=== PATIENT | male | born 1975 | race Caucasian/White ===

== ENCOUNTER 2022-10-20 07:47 | Emergency (ER) | payer BC | END 2022-10-20 10:08 | disposition home or self-care (01) | LOC: LB.ED 07:47 | DX: T58.91XA Toxic effect of carbon monoxide from unspecified source, accidental (unintentional), initial encounter (principal); J45.909 Unspecified asthma, uncomplicated; Z88.5 Allergy status to narcotic agent; Z88.0 Allergy status to penicillin | CPT/HCPCS: 36415; 71045; 80053; 81001; 82803; 84484; 85025; 93005; 99285 ==